=== PATIENT | female | born 1950 | race Caucasian/White ===

== ENCOUNTER 2017-10-03 11:14 | Day surgery (SDC) | payer MEDICARE, OTHER ==
[~2017-10-03] VITALS: Ht 160 cm; Wt 72.9 kg
[~2017-10-03 11:14] MED LIST: ACETAMINOPHEN 325 MG TAB PO PRN; ALLE24TA8 PO; BSS with VANC/TOB/EPI for EYE CASES IR ONE; CYCL10TA PO; CYCLOPENTOLATE 2% OPHTH SOLN 2ML BTL OS ONE; ESTRCAP PO; FISH100049 PO; LIDOCAINE 3.5 % 1ML OPHTH TOPICAL GEL OU ONE; MULT1CHW39 PO; OFLOXACIN 0.3 % (OCUFLOX) OPTH SOL 5ML OS ONE; PHENYLEPHRINE 2.5% OPHTH SOL 2ML OS ONE; PHENYLEPHRINE HCL 10 % OPHTH. SOL 5ML OS PRN; PRESCAP6 PO; PROPARACAINE 0.5% OPHTH SOL 15ML OS PRN; TROPICAMIDE 1% OPHTH SOLN 2ML OS ONE; VITA100067 PO
[2017-10-03] MEDS ORDERED: KETOROLAC 0.5% OPHTH SOLN OS ONE (11:30)
[2017-10-03] MEDS ORDERED: AcetaZOLAMIDE 500 MG ER CAP PO ONE (11:30)
[2017-10-03] MEDS ORDERED: TRIMETHOBENZAMIDE 300 MG CAP PO PRN (11:30)
[2017-10-03] MEDS ORDERED: TROPICAMIDE 1% OPHTH SOLN 2ML As Ordered ONE (12:48)
[2017-10-03] MEDS ORDERED: CYCLOPENTOLATE 2% OPHTH SOLN 2ML BTL As Ordered ONE ×2 (12:48→12:51)
[2017-10-03] MEDS ORDERED: OFLOXACIN 0.3 % (OCUFLOX) OPTH SOL 5ML As Ordered ONE (12:48)
[2017-10-03] MEDS ORDERED: PHENYLEPHRINE 2.5% OPHTH SOL 2ML As Ordered ONE (12:48)
[2017-10-03] MEDS ORDERED: LR 1,000 ML IV SCH (13:15)
[2017-10-03] MEDS ORDERED: POVIDONE-IODINE 5% OPHTH PREP SOL 30ML As Ordered ONE (13:54)
[2017-10-03] MEDS ORDERED: LIDOCAINE 1% SDV 5 ML VIAL As Ordered ONE (13:54)
[2017-10-03] MEDS ORDERED: CEFUROXIME 1MG/0.1ML INTRACAMERAL INJ As Ordered ONE (13:54)
[2017-10-03] MEDS ORDERED: HEALON DUET (HEALON 10MG/ML 0.55ML & HEALON ENDOCOAT 30MG/ML 0.85ML) As Ordered ONE (13:55)
[2017-10-03] MEDS ORDERED: fentaNYL 100 MCG/2 ML INJECTION (J3010) As Ordered ONE (14:24)
[2017-10-03] MEDS ORDERED: MIDAZOLAM INJ 2 MG/2 ML VIAL (J2250) As Ordered ONE (14:24)
[2017-10-03] MEDS ORDERED: ONDANSETRON 4MG/2ML VIAL (J2405) IV PRN (15:15)
[2017-10-03 16:00] VITALS: BP 121/68
--- NOTE | 2017-10-03 21:14 | RO ---
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 PROCEDURE: Femtosecond laser with phacoemulsification and intraocular lens implantation of ZLB00, power 24 diopters and endocyclophotocoagulation and Glaukos IStent [id number]. SURGEON: David Villarreal MD LAUNCHING PAD MECHANIC: None. ANESTHESIA: COMPLICATIONS: None. DESCRIPTION OF PROCEDURE: The patient was brought to the laser room and after adequate patient interface, the suction was activated and OCT images were reviewed. After that the laser was activated and the capsulorrhexis lens fragmentation primary, secondary, corneal incision and arcuate incision were all made according to plan. The suction was released and the patient was brought to the operating room, laid in supine position. The eye was prepped and draped in a sterile fashion for ophthalmic surgery and a lid speculum was placed. [place] and temporal clear corneal incisions were opened and capsulorrhexis removed. Phacoemulsification was done in divide and conquer method after EndoCoat was injected into the anterior chamber. Following which the cortical material was aspirated. Intraocular lens model ZLB00, power 24 diopter inserted. Healon was then placed in the ciliary sulcus to visualize the ciliary processes on the video scan with the help with the help of the EndoProbe. Endocyclophotocoagulation was carried out over 280 degrees at 0.25 to 0.20 mV. 280 degrees were treated in a good fashion with shrinking of the ciliary processes noted. Healon was then placed into the trabecular meshwork where Healon was injected. The patient's head was rotated away from the surgeon, microscope towards the surgeon under high magnification with the help of the Gonio lens and the IStent was inserted. Good blood reflex was noted. It was very difficult for the patient to hold still and IStent was extracted. A second IStent was then placed and because of the poor view secondary to some heme, unable to place it. At this point, the excess Viscoelastic was aspirated, the wound was hydrated. Intracameral Moxifloxacin given. The case discussed in detail with the patient. The patient returned to the recovery room in stable condition.
== END 2017-10-03 16:53 | disposition home or self-care (01) ==
LOC: M SDC 11:14
PROVIDERS: ATTEND Ophthalmology
DX: H26.9 Unspecified cataract (principal); H40.9 Unspecified glaucoma; M54.9 Dorsalgia, unspecified; Z79.899 Other long term (current) drug therapy; Z88.1 Allergy status to other antibiotic agents; Z90.710 Acquired absence of both cervix and uterus
CPT/HCPCS: 66711; 66984; C1783; J2250; J3010; V2788

== ENCOUNTER 2022-07-26 10:37 | Day surgery (SDC) | payer MEDICARE, OTHER ==
[~2022-07-26] VITALS: Ht 157.5 cm; Wt 68.0 kg
[~2022-07-26 10:37] MED LIST changes: -ACETAMINOPHEN 325 MG TAB PO PRN; +ALLE24TA7 PO; -ALLE24TA8 PO; -BSS with VANC/TOB/EPI for EYE CASES IR ONE; +CYCL-707 PO; -CYCL10TA PO; -CYCLOPENTOLATE 2% OPHTH SOLN 2ML BTL OS ONE; +FLON27.5; +GNP250TA9 PO; +KP F1200 PO; -LIDOCAINE 3.5 % 1ML OPHTH TOPICAL GEL OU ONE; +MECL-86 PO; -MULT1CHW39 PO; +MULT200T7 PO; +NS 1,000 ML IV ONE; +OCUVTAB4 PO; -OFLOXACIN 0.3 % (OCUFLOX) OPTH SOL 5ML OS ONE; +OMEG10002 PO; -PHENYLEPHRINE 2.5% OPHTH SOL 2ML OS ONE; -PHENYLEPHRINE HCL 10 % OPHTH. SOL 5ML OS PRN; -PROPARACAINE 0.5% OPHTH SOL 15ML OS PRN; +PURE500C5 PO; +SUPETAB44 PO; +SYST0.4D2 OU; -TROPICAMIDE 1% OPHTH SOLN 2ML OS ONE; +VITMTA PO; +ZINC50TA34 PO
[2022-07-26] MEDS ORDERED: propofoL 200 MG/20 ML VIAL As Ordered ONE (12:28)
[2022-07-26] MEDS ORDERED: LIDOCAINE 2% 100MG/5ML SDV (FOR ANES.) As Ordered ONE (12:28)
[2022-07-26 13:09] VITALS: BP 138/66
== END 2022-07-26 13:55 | disposition home or self-care (01) ==
LOC: M OPP 10:37
PROVIDERS: ATTEND Internal Medicine Gastroenterology
DX: K29.60 Other gastritis without bleeding (principal); R10.13 Epigastric pain; Z79.899 Other long term (current) drug therapy; Z88.1 Allergy status to other antibiotic agents; I95.1 Orthostatic hypotension; I35.9 Nonrheumatic aortic valve disorder, unspecified